=== PATIENT | male | born 1940 | race Caucasian/White ===

== ENCOUNTER 2022-10-25 05:29 | Outpatient (CLI) | payer MEDICARE, BC ==
[~2022-10-25] VITALS: Ht 172.7 cm; Wt 97.3 kg
[2022-10-26] MEDS ORDERED: GINK30CA3 PO (09:54)
[2022-10-26] MEDS ORDERED: TMSL.4C PO (09:54)
[2022-10-26] MEDS ORDERED: LOSA25TA41 PO (09:54)
[2022-10-26] MEDS ORDERED: ALLO300T2 PO (09:54)
[2022-10-26] MEDS ORDERED: ACET-168 PO (09:54)
[2022-10-26] MEDS ORDERED: FLUO15CR2 TP (09:54)
[2022-10-26] MEDS ORDERED: AVOD0.5CAP PO (09:54)
[2022-10-26] MEDS ORDERED: TADA5TAB4 PO (09:54)
[2022-10-26] MEDS ORDERED: GLUC100016 PO (09:54)
[2022-10-26] MEDS ORDERED: OMEP20CA18 PO (09:54)
[2022-10-26] MEDS ORDERED: MELO15TA39 PO (09:54)
[2022-10-26] MEDS ORDERED: [UNRECOGNIZED DRUG - CODE] PO (09:54)
[2022-10-26] MEDS ORDERED: PRAV40TA2 PO (09:54)
== END 2022-10-26 10:05 | disposition home or self-care (01) ==
LOC: PREOP 05:29
PROVIDERS: ATTEND Otolaryngology Otolaryngology/Facial Plastic Surgery
DX: Z01.818 Encounter for other preprocedural examination (principal)

== ENCOUNTER 2022-11-01 06:17 | Day surgery (SDC) | payer MEDICARE, BC ==
[~2022-11-01] VITALS: Ht 172.7 cm; Wt 97.3 kg
[2022-11-01] VITALS (10 sets, daily range): BP systolic 137–162; BP diastolic 70–83
[~2022-11-01 06:17] MED LIST: ACET-168 PO; ALLO300T2 PO; AVOD0.5CAP PO; FLUO15CR2 TP; GINK30CA3 PO; GLUC100016 PO; LOSA25TA41 PO; MELO15TA39 PO; OMEP20CA18 PO; PRAV40TA2 PO; TADA5TAB4 PO; TMSL.4C PO; [UNRECOGNIZED DRUG - CODE] PO
[2022-11-01] MEDS ORDERED: ceFAZolin INJECTION 1,000 MG in NS (IVPB) 50 ML IV ONE (06:45)
[2022-11-01] MEDS ORDERED: LACTATED RINGERS 1,000 ML IV PRN (06:45)
[2022-11-01 06:54] LABS: BASOPHILS % (AUTO) 1 % (0-10); EOSINOPHILS # (AUTO) 0.2 10^3/uL (0.0-0.3); EOSINOPHILS % (AUTO) 5 % (0-10); HEMATOCRIT 41 % (40-54); HEMOGLOBIN 13.4 g/dL (13.3-17.7); LYMPHOCYTES # (AUTO) 1.9 10^3/uL (1.0-4.0); LYMPHOCYTES % (AUTO) 37 % (12-44); MEAN CORPUSCULAR HEMOGLOBIN 29 pg (25-34); MEAN CORPUSCULAR HGB CONC 32 g/dL (32-36); MEAN CORPUSCULAR VOLUME 88 fL (80-99); MEAN PLATELET VOLUME 10.8 fL (9.0-12.2); MONOCYTES # (AUTO) 0.4 10^3/uL (0.0-1.0); MONOCYTES % (AUTO) 9 % (0-12); NEUTROPHILS # (AUTO) 2.4 10^3/uL (1.8-7.8); NEUTROPHILS % (AUTO) 48 % (42-75); PLATELET COUNT 179 10^3/uL (130-400)
[2022-11-01 07:04] LABS: POTASSIUM 3.9 MMOL/L (3.6-5.0)
[2022-11-01 07:05] LABS: CALCIUM 9.2 MG/DL (8.5-10.1)
[2022-11-01 07:10] LABS: CREATININE SERUM 0.79 MG/DL (0.60-1.30)
[2022-11-01] MEDS ORDERED: MUPIROCIN 2% OINT 22 GM (BACTROBAN) TUBE ONE (08:15)
[2022-11-01] MEDS ORDERED: LIDOCAINE/EPI 1%-1:100,000 (XYLOCAINE) 20ML ONE (08:15)
[2022-11-01] MEDS ORDERED: proPOfol 200 MG/20 ML (DIPRIVAN) VIAL IV ONE (08:50)
[2022-11-01] MEDS ORDERED: ONDANSETRON 4 MG/2 ML (SDV) Z0FRAN ONE (08:50)
[2022-11-01] MEDS ORDERED: LIDOCAINE PF 2% 5 ML (XYLOCAINE) VIAL ONE (08:50)
[2022-11-01] MEDS ORDERED: fentaNYL INJ 100 MCG/2 ML AMP ONE (08:51)
[2022-11-01] MEDS ORDERED: LIDOCAINE/EPI 1%-1:100,000 (XYLOCAINE) 20ML INJ ONE (09:38)
--- NOTE | 2022-11-01 09:42 | Progress Note-Pre Operative ---
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
--- NOTE | 2022-11-01 09:43 | Progress Note-Post Operative ---
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 Specimen(s) collected/removed left post aurciular basa lcell to pathology AVELINO SOARES MD Nov 01, 2022 09:43
[2022-11-01] MEDS ORDERED: HYDROcodone/APAP 5 MG/325 MG (LORTAB) TAB PO PRN (09:45)
[2022-11-01] MEDS ORDERED: ACETAMINOPHEN 325 MG TABLET PO PRN (09:45)
[2022-11-01] MEDS ORDERED: ROCURONIUM 50 MG/5 ML (ZEMURON) VIAL IV ONE (09:50)
[2022-11-01] MEDS ORDERED: NEOSTIGMINE (BLOXIVERZ ) 1 MG/1ML 10 ML VIAL ONE ×2 (09:51→10:19)
[2022-11-01] MEDS ORDERED: MUPIROCIN 2% OINT 22 GM (BACTROBAN) TUBE TOP ONE (09:51)
[2022-11-01] MEDS ORDERED: SEVOFLURANE (ULTANE) 15 ML INHAL SOLN ONE (09:51)
[2022-11-01] MEDS ORDERED: GLYCOPYRROLATE 0.2 MG/ML (ROBINUL) 2 ML VIAL ONE (09:51)
--- NOTE | 2022-11-01 12:07 | Anesthesia-General Post-Op ---
General Patient Condition Mental Status/LOC: Same as Preop Cardiovascular: Satisfactory Nausea/Vomiting: Absent Respiratory: Satisfactory Pain: Controlled Complications: Absent Post Op Complications Complications None Follow Up Care/Instructions Patient Instructions None needed. Anesthesia/Patient Condition Patient Condition Patient is doing well, no complaints, stable vital signs, no apparent adverse anesthesia problems. No complications reported per nursing. SAMANTHA RANDALL CRNA Nov 01, 2022 12:07
[2022-11-01] MEDS ORDERED: CEPH500T PO (12:08)
[2022-11-01] MEDS ORDERED: ACHD5005 PO (12:08)
== END 2022-11-01 12:15 | disposition home or self-care (01) ==
LOC: SDC 06:17
PROVIDERS: ATTEND Otolaryngology Otolaryngology/Facial Plastic Surgery
DX: C44.219 Basal cell carcinoma of skin of left ear and external auricular canal (principal); Z87.891 Personal history of nicotine dependence
CPT/HCPCS: 36415; 80048; 85025; 87081; 88305; 88331; 88332; 93005

== ENCOUNTER 2022-12-31 09:03 | Emergency (ER) | payer MEDICARE, BC ==
[~2022-12-31 09:03] MED LIST changes: +ACHD5005 PO; +CEPH500T PO
[2022-12-31] MEDS ORDERED: Tetanus/Diphtheria/Pertussis (Acell) ADULT Vaccine 0.5 ML IM ONE (09:30)
--- NOTE | 2022-12-31 09:53 | Diagnostic Imaging Report ---
PROCEDURE: CT head without contrast. TECHNIQUE: Multiple contiguous axial images were obtained through the brain without the use of intravenous contrast. Auto Exposure Controls were utilized during the CT exam to meet ALARA standards for radiation dose reduction. INDICATION: Fall, head injury, dizziness and pain. No priors. FINDINGS: There is no calvarial fracture deformity. There is no intracerebral hemorrhage. There are no acute or abnormal extra-axial fluid collections. There is no focal nor generalized cerebral edema. Some mild generalized senescent cortical atrophy without fam hydrocephalus. There are intracranial atherosclerotic vascular calcifications. There is membrane thickening and low attenuating fluid within the dependent right maxillary sinus believed inflammatory with a left maxillary and bilateral ethmoid air cells showing lobular membrane thickening without air-fluid levels. No visible fracture or hemo-sinus. No pneumocephalus. IMPRESSION: Chronic atrophy. No hemorrhage or fracture. Paranasal acute on chronic sinusitis with no visible fracture. Dictated by: Dictated on workstation # [id number]
--- NOTE | 2022-12-31 10:19 | ED Fall/Injury ---
General Chief Complaint: Trauma-Non Activation Stated Complaint: FALL | HEAD INJ Nursing Triage Note: PT AMB TO [facility] WITH CANE WITH DAUGHTER WITH C/O FALL AROUND 0800 THIS AM ON THE L SIDE. PT STATES HE STRUCK HIS HEAD ON CONCRETE AND NOW FEELS DIZZY. PT DENIES LOC Source: patient Exam Limitations: no limitations History of Present Illness Date Seen by Provider: Dec 31, 2022 Time Seen by Provider: 09:16 Initial Comments Here with report of fall this morning at about 8 AM. States he tripped over a power cord on the sidewalk and hit his head. Also landed on his left hip that has been replaced previously but this is not significantly hurting him and he was able to walk again. Denies loss of consciousness but did get increasing headache and some dizziness afterwards and thought it would be best to get checked out. Family member with him reports that he has been acting all right otherwise and mentating well but seem to be a dizzy and she wanted to make sure he was okay as well. She did treat the wound on the back of his head by cleaning it up and using ice and there was a very small abrasion that did stop bleeding and has not bled since. Patient does not know the last time he had a tetanus shot and feels that it is probably 20 years ago. Denies nausea or vomiting. Denies weakness. Headache is posterior and mild to moderate but getting better now. Occurred: this morning Severity: mild, moderate Injuries/Pain Location: head, lower extremity Context: tripped Loss of Consciousness: no loss of consciousness Modifying Factors: Improves With Rest Associated Symptoms (Fall): No Abdominal Pain, No Chest Pain, No Confusion; Headache; No Nausea/Vomiting, No Neck Pain, No Shortness of Air, No Trouble Walking Allergies and Home Medications Allergies Coded Allergies: No Known Drug Allergies (Unverified , 10/26/22) Patient Home Medication List Home Medication List Reviewed: Yes Acetaminophen (Acetaminophen Extra Strength) 500 Mg Tablet, 500 MG PO NEEDED, (Reported) Entered as Reported by: Rae Damico on 10/26/22 0958 Allopurinol (Allopurinol) 300 Mg Tablet, 300 MG PO DAILY, (Reported) Entered as Reported by: Rae Damico on 10/26/22 0954 Cephalexin (Cephalexin) 500 Mg Tablet, 500 MG PO TID Prescribed by: ERICA INGRAM on 11/01/22 1208 Dutasteride (Avodart) 0.5 Mg Cap, 0.5 MG PO DAILY, (Reported) Entered as Reported by: Rae Damico on 10/26/22 09 Fluocinonide/Emollient Base (Fluocinonide-E 0.05% Cream) 0.05 % Cream..g., 15 GM TP NEEDED, (Reported) Entered as Reported by: Rae Damico on 10/26/22953 Ginkgo Biloba [place] Extract (Ginkgo Biloba) 30 Mg Capsule, 60 MG PO BID, (Reported) Entered as Reported by: Rae Damico on 10/26/22953 Glucosamine Sulfate 2Kcl (Glucosamine) 1,000 Mg Tablet, 1,000 MG PO BID, (Reported) Entered as Reported by: Rae Damico on 10/26/22953 Hydrocodone/Acetaminophen (Hydrocodone-Acetamin 5-325 mg) 5 Mg-325 Mg Tablet, 1 TAB PO Q4H PRN for PAIN-MODERATE (5-7) Prescribed by: ERICA INGRAM on 11/01/22 120 Lactase (Lactase Enzyme) 3,000 Unit Tab.chew, 3,000 UNIT PO NEEDED, (Reported) Entered as Reported by: Rae Damico on 10/26/22953 Losartan Potassium (Losartan Potassium) 25 Mg Tablet, 25 MG PO DAILY, (Reported) Entered as Reported by: Rae Damico on 10/26/22953 Meloxicam (Meloxicam) 15 Mg Tablet, 15 MG PO HS, (Reported) Entered as Reported by: Rae Damico on 10/26/22953 Omeprazole (Omeprazole) 20 Mg Capsule.dr, 20 MG PO BID, (Reported) Entered as Reported by: Rae Damico on 10/26/22953 Pravastatin Sodium (Pravastatin Sodium) 40 Mg Tablet, 40 MG PO HS, (Reported) Entered as Reported by: Rae Damico on 10/26/22953 Tadalafil (Tadalafil) 5 Mg Tablet, 5 MG PO DAILY, (Reported) Entered as Reported by: Rae Damico on 10/26/22 09 Tamsulosin HCl (Flomax) 0.4 Mg Cap, 0.4 MG PO HS, (Reported) Entered as Reported by: Rae Damico on 10/26/22 0954 Review of Systems Review of Systems Constitutional: No chills, No fever Eyes: Denies Blurred Vision, Denies Pain Ears, Nose, Mouth, Throat: no symptoms reported Respiratory: No short of breath Cardiovascular: No chest pain Gastrointestinal: No nausea, No vomiting Skin: change in color (Your scalp) Psychiatric/Neurological: Headache; Denies Weakness Past Xrquuvq-Biqsze-Hzhmmr Hx Patient Social History Tobacco Use?: No Use of E-Cig and/or Vaping dev: No Substance use?: No Alcohol Use?: No Pt feels they are or have been: No Immunizations Up To Date Tetanus Booster (TDap): More than 5yrs First/Initial COVID19 Vaccinat: 07/21/20 Second COVID19 Vaccination Dennys: 08/18/20 Third COVID19 Vaccination Date: 03/06/21 Seasonal Allergies Seasonal Allergies: Yes Past Medical History Surgery/Hospitalization HX: HTN, HLD, PROSTATE ENLARGEMENT, VERTIGO. ARTHRITIS, GOUT L HIP REPLACEMENT, SKIN CANCER REMOVAL, HERNIA Surgeries: Yes (DBL HERNIA, SKIN GRAFTS, SKIN CA, TOTAL L HIP & HEMATOMA, DUPUYTREN'S R SINGLETON) Adenoidectomy, Eye Surgery, Joint Replacement, Orthopedic, Tonsillectomy Respiratory: No Currently Using CPAP: No Currently Using BIPAP: No Cardiac: Yes Hypertension Neurological: Yes Vertigo Sexually Transmitted Disease: No Genitourinary: Yes Prostate Problems Gastrointestinal: No Abdominal Hernia Musculoskeletal: Yes (DUPUYTREN'S RT HAND, LEFT HIP REPLACEMENT, INGROWN TOENAI L) Contracture, Gout Endocrine: No HEENT: Yes Cataract, Tonsilitis Loss of Vision: Denies Hearing Impairment: Denies Cancer: Yes Skin Did You Recieve Any Treatments: Yes What Type of Treatment Did You: Surgical Intervention Psychosocial: No Integumentary: Yes Eczema Blood Disorders: No Adverse Reaction/Blood Tranf: No Family Medical History Reviewed Nursing Family Hx Physical Exam Vital Signs Vital Signs - First Documented 12/31/22 09:11 Temp 35.9 Pulse 66 Resp 16 B/P (MAP) 165/77 (106) Pulse Ox 97 Capillary Refill : Height, Weight, BMI Height: '" Weight: lbs. oz. kg; 32.62 BMI Method: General Appearance: WD/WN, no apparent distress HEENT: PERRL/EOMI, TMs normal Neck: full range of motion, supple, normal inspection Cardiovascular: regular rate, rhythm, no murmur Respiratory: lungs clear, normal breath sounds Gastrointestinal: non tender, soft Back: normal inspection, no CVA tenderness, no vertebral tenderness Extremities: normal range of motion, non-tender Neurologic/Psychiatric: alert, oriented x 3 Skin: warm/dry, ecchymosis (Posterior scalp with very small abrasion nonbleeding and ecchymosis of 3 x 3 cm area) Herminio Coma Score Best Eye Response: (4) Open Spontaneously Best Verbal Response: (5) Oriented Best Motor Response: (6) Obeys Commands Progress/Results/Core Measures Results/Orders My Orders Orders - ANSELMO BERNAL MD Ct Head Wo (12/31/22 09:21) Dipht/Pertuss(Acell)/Tet Adult (Dipht/Pe (12/31/22 09:30) Medications Given in ED Current Medications Medications Dose Ordered Sig/Jumana Route Start Time Stop Time Status Last Admin Dose Admin Diphtheria/ Tetanus/Acell Pertussis 0.5 ml ONCE ONCE IM 12/31/22 09:30 12/31/22 09:31 DC 12/31/22 09:38 0.5 ML Vital Signs/I&O 12/31/22 09:11 Temp 35.9 Pulse 66 Resp 16 B/P (MAP) 165/77 (106) Pulse Ox 97 Blood Pressure Mean: 106 Progress Progress Note : Progress Note Seen and evaluated. CT head ordered. We will update tetanus with Boostrix 0.5 mL IM. Monitor patient. Differential diagnosis includes intracranial hemorrhage versus minor head injury. 1000: CT head reviewed by me and shows no obvious intracranial hemorrhage on my interpretation pending radiology report. 1020: Radiology report reviewed and shows no intracranial hemorrhage as noted below. Patient does have lower pulse in the 50s and sometimes into the upper 40s but is not symptomatic and blood pressure is 130s to 140s systolic. This may be medication effect and he will follow-up with Dr. Barber for this. I will send a copy of the chart to him. Discharged home with return precautions. Patient and family verbalized understanding of instructions and agreement with plan. Diagnostic Imaging Diagonstic Imaging: CT Plain Films/CT/US/NM/MRI: head Comments [facility] [place], [place] NAME: [facility] REC#: [id number] PT STATUS: REG ER : 1940 PHYSICIAN: ANSELMO BERNAL MD ADMIT DATE: 12/31/22/ER Draft Date of Exam:12/31/22 CT HEAD WO PROCEDURE: CT head without contrast. TECHNIQUE: Multiple contiguous axial images were obtained through the brain without the use of intravenous contrast. Auto Exposure Controls were utilized during the CT exam to meet ALARA standards for radiation dose reduction. INDICATION: Fall, head injury, dizziness and pain. No priors. FINDINGS: There is no calvarial fracture deformity. There is no intracerebral hemorrhage. There are no acute or abnormal extra-axial fluid collections. There is no focal nor generalized cerebral edema. Some mild generalized senescent cortical atrophy without fam hydrocephalus. There are intracranial atherosclerotic vascular calcifications. There is membrane thickening and low attenuating fluid within the dependent right maxillary sinus believed inflammatory with a left maxillary and bilateral ethmoid air cells showing lobular membrane thickening without air-fluid levels. No visible fracture or hemo-sinus. No pneumocephalus. IMPRESSION: Chronic atrophy. No hemorrhage or fracture. Paranasal acute on chronic sinusitis with no visible fracture. Dictated on workstation # [id number] Dict: 12/31/22 0936 Trans: 12/31/22 0953 [facility] [id number] Interpreted by: LILIANA POZO Electronically signed by: Departure Impression Primary Impression: Head injury Qualified Codes: S09.90XA - Unspecified injury of head, initial encounter Additional Impression: Abrasion Disposition: 01 HOME, SELF-CARE Condition: Improved Departure-Patient Inst. Decision time for Depature: 10:22 Referrals: MARILEE BARBER MD (PCP/Family) Primary Care Physician Patient Instructions: Head Injury in Adults (DC), Abrasions ED Add. Discharge Instructions: All discharge instructions reviewed with patient and/or family. Voiced understanding. A use ice packs to area of concern 20 minutes/h as needed to reduce swelling and pain. You may use a small amount of antibiotic ointment or cream over area of wound as needed. It is okay to shower and wash hair. Follow-up with your doctor for recheck and further evaluation and to discuss heart rate. Return for worse pain, fever, vomiting, weakness, breathing problems or other concerns as needed. Copy Copies To 1: MARILEE BARBER MD, TIMOTHY D MD Dec 31, 2022 10:19
[2022-12-31 10:29] VITALS: BP 142/71
== END 2022-12-31 10:30 | disposition home or self-care (01) ==
LOC: EDUNIT# 09:03 → ER 09:04
DX: S09.90XA Unspecified injury of head, initial encounter (principal); S00.03XA Contusion of scalp, initial encounter; Z23 Encounter for immunization; W01.198A Fall on same level from slipping, tripping and stumbling with subsequent striking against other object, initial encounter; Y92.480 Sidewalk as the place of occurrence of the external cause
CPT/HCPCS: 70450; 90715